=== PATIENT | male | born 1990 | race American Indian/Alaskan Native ===

== ENCOUNTER 2018-10-25 12:45 | Emergency (ER) | payer MEDICAID ==
[2018-10-25 12:52] VITALS: BP 141/97
--- NOTE | 2018-10-25 14:14 | Emergency Department Report ---
ED General Adult HPI - General Chief complaint: Rectal Pain Stated complaint: HEMMORRHOIDS Time Seen by Provider: 10/25/18 14:05 Source: patient Mode of arrival: Ambulatory Limitations: No Limitations - History of Present Illness Initial comments: Pt is 28 yo male who presents to the ED with c/o rectal pain x 2 days. He states he noticed a small bump present around the rectum. He has a hx of hemorrhoids and states it feels the same. He denies any rectal bleeding, hematochezia, melena, N/V, fever, or abdominal pain. The patient states he has not used any medication to tx the hemorrhoid. - Related Data Previous Rx's Medication Instructions Recorded Last Taken Type Docusate Sodium [Colace] 100 mg PO BID #20 capsule 10/25/18 Unknown Rx Hydrocortisone [Anucort-HC SUPPOS] 25 mg RC BID #14 supp.rect 10/25/18 Unknown Rx Allergies Allergy/AdvReac Type Severity Reaction Status Date / Time No Known Allergies Allergy Unverified 10/25/18 12:46 ED Review of Systems ROS: Stated complaint: HEMMORRHOIDS Other details as noted in HPI Comment: All other systems reviewed and negative ED Past Medical Hx - Past Medical History Previous Medical History?: Yes Hx Psychiatric Treatment: Yes ([employer]) - Surgical History Past Surgical History?: No - Social History Smoking Status: Current Every Day Smoker Substance Use Type: None - Medications Home Medications: Home Medications Medication Instructions Recorded Confirmed Last Taken Type Docusate Sodium [Colace] 100 mg PO BID #20 capsule 10/25/18 Unknown Rx Hydrocortisone [Anucort-HC SUPPOS] 25 mg RC BID #14 supp.rect 10/25/18 Unknown Rx ED Physical Exam - General Limitations: No Limitations General appearance: alert, in no apparent distress - Head Head exam: Present: atraumatic, normocephalic - ENT ENT exam: Present: mucous membranes moist - Respiratory Respiratory exam: Present: normal lung sounds bilaterally. Absent: respiratory distress, wheezes, rales, rhonchi, stridor, chest wall tenderness, accessory muscle use, decreased breath sounds, prolonged expiratory - Cardiovascular Cardiovascular Exam: Present: regular rate, normal rhythm, normal heart sounds. Absent: systolic murmur, diastolic murmur, rubs, gallop - GI/Abdominal GI/Abdominal exam: Present: soft, normal bowel sounds. Absent: distended, tenderness, guarding, rebound, rigid - Rectal Rectal exam: Present: normal rectal tone, heme (-) stool, hemorrhoids, normal prostate, other (greeting card writer: CAROL Azul, non thrombosed 2 cm hemorrhoid present at the 10 oclock position, no internal hemorrhoids, brown stool present, no blood visualized) - Neurological Exam Neurological exam: Present: alert, oriented X3 - Psychiatric Psychiatric exam: Present: normal affect, normal mood - Skin Skin exam: Present: warm, dry, intact ED Course Vital Signs 10/25/18 12:50 Temperature 98.6 F Pulse Rate 61 Respiratory 16 Rate Blood Pressure 141/97 O2 Sat by Pulse 100 Oximetry ED Medical Decision Making - Medical Decision Making Pt is 28 yo male who presents to the ED with c/o rectal pain x 2 days. He states he noticed a small bump present around the rectum. He has a hx of hemorrhoids and states it feels the same. He denies any rectal bleeding, hematochezia, melena, N/V, fever, or abdominal pain. The patient states he has not used any medication to tx the hemorrhoid. On examination pt has a 2 cm non thrombosed hemorrhoid at the 10 oclock position, no internal hemorrhoids, no bleeding on exam. Hemocult card is negative. no abd tenderness, VSS. Will give pt tx for hemorrhoids. Advised to take medication as prescribed. Will have pt follow up with GI doctor and PCP in the next 2-3 days. Discussed in detail return to the ED for any new or worsening symptoms. - Differential Diagnosis external hemorrhoid, internal hemorrhoid, anal fissure Critical care attestation.: If time is entered above; I have spent that time in minutes in the direct care of this critically ill patient, excluding procedure time. ED Disposition Clinical Impression: Rectal pain, External hemorrhoid Disposition: - TO HOME OR SELFCARE Is pt being admited?: No Does the pt Need Aspirin: No Condition: Stable Instructions: Hemorrhoids (ED) Additional Instructions: Please follow up with a primary care doctor in the next 2-3 days. Please follow up with a GI doctor in the next 2-3 days. Take all medication as prescribed. Return to the emergency room for any new or worsening symptoms. Prescriptions: Hydrocortisone [Anucort-HC SUPPOS] 25 mg RC BID #14 supp.rect Docusate Sodium [Colace] 100 mg PO BID #20 capsule Referrals: KIMBERLEY BARRAZA MD [Primary Care Provider] - 2-3 Days [facility] [Provider Group] - 2-3 Days Time of Disposition: 14:47 Print Language: CHILEAN
== END 2018-10-25 15:07 | disposition home or self-care (01) ==
LOC: ED 12:45
DX: K62.89 Other specified diseases of anus and rectum (principal); K64.4 Residual hemorrhoidal skin tags; F31.9 Bipolar disorder, unspecified; F17.200 Nicotine dependence, unspecified, uncomplicated
CPT/HCPCS: 82271; 99282